=== PATIENT | male | born 2000 | race Two or more races ===

== ENCOUNTER 2021-02-04 23:03 | Emergency (ER) | payer OTHER ==
[2021-02-04 23:14] VITALS: BP 109/66; PULSE 71; TEMP 98.7; BMI 21.4
[2021-02-07 01:06] LABS: SARS-CoV-2 NAA Detected (Not Detected)
== END 2021-02-04 23:33 | disposition home or self-care (01) ==
LOC: FER 23:03
DX: J06.9 Acute upper respiratory infection, unspecified (principal)
CPT/HCPCS: 87804; 87807; 99283-25; C9803; U0003; U0005